=== PATIENT | female | born 1955 | race Caucasian/White ===

== ENCOUNTER 2021-07-27 12:11 | Emergency (ER) | payer MEDICARE, BC ==
[2021-07-27 13:35] LABS: #Eosinphils 0.1 10x3/uL (0.0-0.5); #Monocytes 0.6 10x3/uL (0.0-1.1); #Neutrophils 5.6 10x3/uL (1.5-8.4); %Basophils 0.4 % (0.0-2.0); %Eosinophils 0.6 % (0.0-6.0); %Lymphocytes 21.8 % (18.0-47.0); %Monocytes 7.3 % (0.0-10.0); %Neutrophils 69.6 % (40.0-75.0); Mean Corpuscular HGB CONC 32.3 g/dL (32.0-36.0); Mean Corpuscular Volume 89.5 fl (81.6-98.3); Mean Platelet Volume 9.5 fl (7.4-10.4); Platelet Count 267 10x3/uL (150-450); RBC Distribution Width 12.9 % (11.5-14.5); Red Blood Cell (RBC) Count 4.49 10x6/uL (3.90-5.03)
[2021-07-27 13:45] LABS: ALT (SGPT) 14 U/L (8-55); AST (SGOT) 15 U/L (5-34); Alkaline Phosphatase 81 U/L (40-110); Anion Gap 14 mmol/L (10-20); BUN (Urea Nitrogen) 15 mg/dL (9.8-20.1); Calc. Creatinine Clearance 0 mL/min (70-130); Calcium 9.1 mg/dL (7.8-10.44); Carbon Dioxide 22 mmol/L (23-31); Chloride 109 mmol/L (98-107); Glucose 82 mg/dL (80-115); Magnesium 2.1 mg/dL (1.6-2.6); Sodium 141 mmol/L (136-145)
== END 2021-07-27 14:35 | disposition home or self-care (01) ==
LOC: CSHERS 12:11
DX: I48.0 Paroxysmal atrial fibrillation (principal)
CPT/HCPCS: 71045; 80053; 83735; 83880; 84443; 84484; 85025; 85610; 85730; 93005; 94760

== ENCOUNTER 2022-08-01 10:17 | Emergency (ER) | payer MEDICARE, BC ==
[2022-08-01] MEDS ORDERED: Boostrix 0.5 ML (Tdap) VIAL (>/=7 yrs of age) ONE (10:58)
[2022-08-01] MEDS ORDERED: Rabies Vaccine Human 2.5 UNITS VIAL IM ONE (11:00)
== END 2022-08-01 12:18 | disposition home or self-care (01) ==
LOC: CSHERS 10:17
DX: S60.511A Abrasion of right hand, initial encounter (principal); I10 Essential (primary) hypertension; W55.03XA Scratched by cat, initial encounter; Z23 Encounter for immunization
CPT/HCPCS: 90375; 90471; 90472; 90675; 90715; 96372; 99283

== ENCOUNTER → 2022-08-04 | Day surgery (SDC) | payer MEDICARE, BC ==
[~2022-08-04] MED LIST: Rabies Vaccine Human 2.5 UNITS VIAL IM ONE
== END ==
LOC: CSHER/OP 14:36
PROVIDERS: ATTEND Physical Medicine & Rehabilitation
DX: Z23 Encounter for immunization (principal)
CPT/HCPCS: 90675

== ENCOUNTER → 2022-08-08 | Day surgery (SDC) | payer MEDICARE, BC | LOC: CSHER/OP 12:28 | PROVIDERS: ATTEND Pathology Anatomic Pathology & Clinical Pathology | DX: Z23 Encounter for immunization (principal) | CPT/HCPCS: 90471; 90675 ==

== ENCOUNTER → 2022-08-15 | Day surgery (SDC) | payer MEDICARE, BC | LOC: CSHER/OP 13:00 | PROVIDERS: ATTEND Pathology Anatomic Pathology & Clinical Pathology | DX: Z23 Encounter for immunization (principal); I10 Essential (primary) hypertension | CPT/HCPCS: 90471; 90675 ==